=== PATIENT | female | born 1940 | race Caucasian/White ===

== ENCOUNTER 2017-01-08 10:48 | Emergency (ER) | payer MEDICARE, BC ==
[~2017-01-08] VITALS: Ht 152.4 cm; Wt 78.9 kg
--- NOTE | 2017-01-08 11:10 | NUR ---
PT B[facility] AT 0300AM. R LEG NUMBNESS. HEADACHE. DIZZINESS. SENT BY HER PCP DR. CARBAJAL. DENIES KO. DENIES PAIN/TRAUMA ELSEWHERE. PT AAOX3. VSEmeka. AT FOR EVAL. SAFETY AND COMFORT MEASURES PROVIDED. WILL MONITOR.
--- NOTE | 2017-01-08 11:40 | NUR ---
IV ACCESS STARTED, BLOOD DRAWN FOR LABS.
[2017-01-08] MEDS ORDERED: IV NS 0.9% 500 ML IV ONE (12:00)
[2017-01-08] MEDS ORDERED: IV SET PRIMARY 1 EA INFUS.SET MC ONE (12:00)
[2017-01-08 12:04] LABS: BASOPHILS # (AUTO) 0.1 /CMM (0.0-0.2); BASOPHILS % (AUTO) 0.5 % (0.0-2.0); EOSINOPHILS # (AUTO) 0.2 /CMM (0.0-0.7); EOSINOPHILS % (AUTO) 2.3 % (0.0-6.0); HEMATOCRIT 42 % (33-45); HEMOGLOBIN 13.9 g/dL (11.5-14.8); LYMPHOCYTES # (AUTO) 1.6 /CMM (0.8-4.8); LYMPHOCYTES % (AUTO) 15.6 % (20.0-44.0); MEAN CORPUSCULAR HEMOGLOBIN 29 PG (26.0-33.0); MEAN CORPUSCULAR HGB CONC 33 g/dl (31.0-36.0); MEAN CORPUSCULAR VOLUME 90 fL (82-100); MONOCYTES # (AUTO) 0.6 /CMM (0.1-1.30); MONOCYTES % (AUTO) 6.1 % (2.0-12.0); NEUTROPHILS # (AUTO) 7.8 /CMM (1.8-8.9); NEUTROPHILS % (AUTO) 75.5 % (43.0-81.0); PLATELET COUNT (AUTO) 223 /CMM (150-450); RDW COEFFICIENT OF VARIATION 13.3 (11.5-15.0); RED BLOOD CELL COUNT(AUTO) 4.72 MIL/uL (4.0-5.2); WHITE BLOOD COUNT (AUTO) 10.3 K/uL (4.3-11.0)
[2017-01-08] MEDS: IV NS 0.9% 500 ML BAG IV ONE (12:05)
[2017-01-08 12:13] LABS: CALCIUM, SERUM 9.2 mg/dL (8.5-10.1); CARBON DIOXIDE 32 mmol/L (21-32); CHLORIDE 105 mmol/L (98-107); CREATININE 0.8 mg/dL (0.6-1.3); GLUCOSE 102 mg/dL (74-106); POTASSIUM 4.2 mmol/L (3.5-5.1); SODIUM SERUM 141 mmol/L (136-145); UREA NITROGEN, BLOOD 15 mg/dL (7-18)
--- NOTE | 2017-01-08 12:16 | NUR ---
PT TAKEN TO CT.
[2017-01-08 12:18] LABS: INR 0.93 (0.87-1.13); PROTHROMBIN TIME 9.7 SECS (9.5-12.7)
[2017-01-08 12:22] LABS: TROPONIN I < 0.017 ng/mL (0.00-0.056)
--- NOTE | 2017-01-08 12:58 | NUR ---
CALLED AT [phone], TRANSFERRED CALL TO
--- NOTE | 2017-01-08 13:12 | NUR ---
Patient discharged to home in stable condition. Written and verbal after care instructions given. Patient verbalizes understanding of instruction.IV removed. Catheter intact and site benign. Pressure and 4x4 applied to site. No bleeding noted.
[2017-01-08 13:40] VITALS: BP 113/71
== END 2017-01-08 13:40 | disposition home or self-care (01) ==
LOC: ER 10:51
DX: S09.90XA Unspecified injury of head, initial encounter (principal); I10 Essential (primary) hypertension; R51 Headache; L40.9 Psoriasis, unspecified; R79.1 Abnormal coagulation profile; Z88.5 Allergy status to narcotic agent; W18.39XA Other fall on same level, initial encounter; Y93.89 Activity, other specified; Y92.89 Other specified places as the place of occurrence of the external cause; Y99.9 Unspecified external cause status
CPT/HCPCS: 36415; 70450-TC; 71010-TC; 80048-TC; 84484-TC; 85025-TC; 85730-TC; A4606; J7040; Z7610

== ENCOUNTER 2018-06-05 15:14 | Emergency (ER) | payer MEDICARE, BC ==
[~2018-06-05] VITALS: Ht 152.4 cm; Wt 77.1 kg
--- NOTE | 2018-06-05 15:30 | NUR ---
PT BIB SELF FROM HOME, WHO CQAME IN DUE TO LOWER EXTRIMITIES RASH AND ITCHING FROM THE INSECT BITES. ON ROOM AIR AND TOLERATED WELL. ALERT AND ORIENTED X 4, VERBALLY RESPONSIVE. KEPT COMFORTABLE. WILL CONTINUE TO MONITOR ACCORDINGLY.
--- NOTE | 2018-06-05 15:57 | NUR ---
DR. COLEMAN AT BEDSIDE FOR EVAL.
[2018-06-05 16:25] VITALS: BP 110/61
== END 2018-06-05 16:26 | disposition home or self-care (01) ==
LOC: ER 15:21
DX: S40.861A Insect bite (nonvenomous) of right upper arm, initial encounter (principal); S80.261A Insect bite (nonvenomous), right knee, initial encounter; I10 Essential (primary) hypertension; L40.9 Psoriasis, unspecified; Z88.5 Allergy status to narcotic agent; W57.XXXA Bitten or stung by nonvenomous insect and other nonvenomous arthropods, initial encounter; Y93.89 Activity, other specified; Y92.89 Other specified places as the place of occurrence of the external cause; Y99.8 Other external cause status
CPT/HCPCS: A4606; Z7610

== ENCOUNTER 2019-03-02 21:58 | Inpatient (IN) | payer MEDICARE, BC ==
[~2019-03-02] VITALS: Ht 154.9 cm; Wt 84.4 kg
--- NOTE | 2019-03-02 22:15 | NUR ---
TO BED 1 AMBULATORY C/O RLE REDNESS, PAIN AND SWELLING X1 DAY. PT AAOX4 NO ACUTE DISTRESS NOTED, RESP EVEN AND UNLABORED. PENDING ER MD HARDIN.
[2019-03-02] MEDS ORDERED: CLINDAMYCIN 900 MG/6 ML VIAL ONE (23:20)
[2019-03-02 23:22] LABS: BASOPHILS # (AUTO) 0.1 /CMM (0.0-0.2); BASOPHILS % (AUTO) 0.7 % (0.0-2.0); EOSINOPHILS % (AUTO) 3.1 % (0.0-6.0); HEMATOCRIT 40 % (33-45); HEMOGLOBIN 13.5 g/dL (11.5-14.8); LYMPHOCYTES # (AUTO) 2.2 /CMM (0.8-4.8); LYMPHOCYTES % (AUTO) 18.1 % (20.0-44.0); MEAN CORPUSCULAR HGB CONC 34 g/dl (31.0-36.0); MEAN CORPUSCULAR VOLUME 89 fL (82-100); MONOCYTES # (AUTO) 0.7 /CMM (0.1-1.30); NEUTROPHILS # (AUTO) 8.8 /CMM (1.8-8.9); NEUTROPHILS % (AUTO) 72.1 % (43.0-81.0); PLATELET COUNT (AUTO) 200 /CMM (150-450); RED BLOOD CELL COUNT(AUTO) 4.47 MIL/uL (4.0-5.2); WHITE BLOOD COUNT (AUTO) 12.1 K/uL (4.3-11.0)
[2019-03-02] MEDS ORDERED: CLINDAMYCIN 600 MG in IV D5W 100 ML IV ONE (23:30)
[2019-03-02 23:31] LABS: CALCIUM, SERUM 9.1 mg/dL (8.5-10.1); CARBON DIOXIDE 24 mmol/L (21-32); CHLORIDE 104 mmol/L (98-107); GLUCOSE 94 mg/dL (74-106); SODIUM SERUM 139 mmol/L (136-145); UREA NITROGEN, BLOOD 24 mg/dL (7-18)
--- NOTE | 2019-03-03 00:16 | NUR ---
ER MICHELLE RDZ TALKING TO PT REGARDING HOSPITAL ADMISSION.
--- NOTE | 2019-03-03 00:46 | NUR ---
ER MICHELLE RDZ SPOKE TO DR. WYATT REGARDING PT ADMISSION.
[2019-03-03] MEDS ORDERED: ACETAMINOPHEN ES 500 MG TABLET PO ONE (01:00)
--- NOTE | 2019-03-03 01:06 | NUR ---
REPORT CALLED TO M/S DANGELO DUGGAN.
[2019-03-03] MEDS ORDERED: ACETAMINOPHEN ES 500 MG TABLET ONE (01:07)
--- NOTE | 2019-03-03 01:27 | NUR ---
MS TRANSIT MIXER OPERATOR NOTE: PT ADMITTED FROM ER VIA WHEELCHAIR WITH ADMITTING DIAGNOSIS OF CELLULITIS. PT IS ALERT AND ORIENTED X3. ABLE TO MAKE NEEDS KNOWN. NO APPARENT DISTRESS NOTED. DENIES PAIN AND DISCOMFORT AT THIS TIME. ON ROOM AIR, SATURATING WELL. NO SOB NOTED. PT HAS AN IV ON RIGHT FOREARM #18 INTACT AND PATENT, FLUSHING WELL. NO SIGN/SYMPTOMS OF INFILTRATION NOTED. PT IS AMBULATORY WITH WALKER. PERTINENT ASSESSMENTS DONE, MULTIPLE SKIN ISSUES NOTED, PICTURES TAKEN AND PLACED ON CHART. KEPT CLEAN, DRY AND COMFORTABLE. CALL LIGHT PLACED WITHIN REACH. SAFETY AND FALL PRECAUTIONS OBSERVED AND MAINTAINED. WILL CONTINUE TO MONITOR PT.
[2019-03-03] MEDS ORDERED: HYDROCODONE/APAP 5/325MG 1 EACH TABLET PO PRN (02:00)
[2019-03-03] MEDS ORDERED: ACETAMINOPHEN 325 MG TABLET PO PRN (02:00)
[2019-03-03] MEDS ORDERED: PIPERACILLIN /TAZOBACTAM 3.375 G VIAL IV ONE (02:10)
[2019-03-03] MEDS: ENOXAPARIN SODIUM 40 MG/0.4 ML DISP.SYRIN SQ SCH ×2 (02:13→21:03)
[2019-03-03] MEDS ORDERED: PIPERACILLIN /TAZOBACTAM 3.375 G in IV D5W 50 ML IV ONE (02:30)
[2019-03-03] MEDS ORDERED: VANCOMYCIN 1.25 GM in IV D5W 250 ML IV ONE (02:30)
[2019-03-03 02:35] VITALS: BP 162/81
[2019-03-03] MEDS ORDERED: VANCOMYCIN 1 GM VIAL ONE (02:50)
[2019-03-03 04:00] VITALS: BP 113/58
[2019-03-03] MEDS ORDERED: PIPERACILLIN /TAZOBACTAM 3.375 G in IV D5W 50 ML IV SCH (05:00)
--- NOTE | 2019-03-03 06:41 | NUR ---
MS RN NOTE: NO CHANGES NOTED THROUGHOUT THE SHIFT. NO APPARENT DISTRESS NOTED. NO COMPLAINTS OF PAIN OR DISCOMFORT AT THIS TIME. IV ON RIGHT FOREARM #18 INTACT AND PATENT, FLUSHING WELL. PT ABLE TO AMBULATE TO THE BATHROOM WITH WALKER. CALL LIGHT PLACED WITHIN REACH. KEPT CLEAN, DRY AND COMFORTABLE. SAFETY AND FALL PRECAUTIONS OBSERVED AND MAINTAINED. WILL ENDORSE TO DAY SHIFT RN FOR CONTINUITY OF CARE.
[2019-03-03] MEDS: PANTOPRAZOLE 40 MG TABLET.DR PO SCH (07:42)
[2019-03-03 08:00] VITALS: BP 149/65
--- NOTE | 2019-03-03 08:32 | NUR ---
WOUND CARE CONSULT: PT PRESENTS INDEPENDENT WITH BED MOBILITY AND CONTINENT. PT STATES HAS PSORIASIS AND USES TRIAMCINOLONE AT HOME. RT LOWER LEG IS WARM, RED WITH INTACT BLISTER AND BILATERAL FEET HAVE PSORIATIC PATCHES, PRESENT ON ADMISSION. RECOMMEND DPM CONSULT. DR LINDA NOTIFIED OF CONSULT REQUEST. PT ON IMELDA ISOFLEX LOW AIRLOSS BED. WILL SEE PRN. THOMAS IN AGREEMENT WITH PLAN OF CARE. Addendum: 03/03/19 at 0836 by ZARA DUONG WNDNU Amended: Links added.
[2019-03-03] MEDS ORDERED: Z GUARD REMEDY 2 OZ OINT TP PRN (09:00)
[2019-03-03] MEDS ORDERED: FEE PK DOSING 1 MIN EA MC ONE (09:49)
[2019-03-03] MEDS ORDERED: OMEP40CA37 PO (10:19)
[2019-03-03] MEDS ORDERED: APIX2.5T PO (10:19)
[2019-03-03] MEDS ORDERED: HYDR10SY16 PO (10:19)
[2019-03-03] MEDS ORDERED: POTA15TA11 PO (10:19)
[2019-03-03] MEDS ORDERED: FEBU80TA PO (10:19)
[2019-03-03] MEDS ORDERED: SERT50TA12 PO (10:19)
[2019-03-03] MEDS ORDERED: OLME1TAB50 PO (10:19)
[2019-03-03] MEDS ORDERED: APRE30TA2 PO (10:19)
[2019-03-03] MEDS ORDERED: ROSU5TAB13 PO (10:19)
[2019-03-03] MEDS ORDERED: COLC0.6C3 PO (10:19)
[2019-03-03] MEDS: PIPERACILLIN /TAZOBACTAM 3.375 G in IV D5W 100 ML IV SCH ×2 (11:53→17:49)
[2019-03-03] MEDS ORDERED: hydrOXYzine HCL SYRUP 10 MG/5 ML UDC PO PRN (15:00)
[2019-03-03] MEDS ORDERED: COLCHICINE 0.6 MG TABLET PO PRN (15:00)
[2019-03-03] MEDS ORDERED: hydrOXYzine 10 MG TABLET PO PRN (16:00)
[2019-03-03] MEDS ORDERED: OTEZLA 30 MG PO SCH (17:00)
--- NOTE | 2019-03-03 17:25 | NUR ---
Met with patient, she is alert and pleasant. Lives locally with her spouse in a two story home. 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 She has a caregiver 5days/week and has good family support. She own a walker, no homehealth reported. Pcp is Dr. Oliver. Family will provide ride when discharge. Addendum: 03/03/19 at 1725 by VICKIE ANDERSON RN Amended: Links added.
[2019-03-03] MEDS: APIXABAN 2.5 MG TABLET PO SCH (17:33)
--- NOTE | 2019-03-03 19:20 | NUR ---
RN NOTES: RECEIVED AWAKE SITTING ON THE BED SIDE CHAIR, A/OX3-4, FAMILY PRESENT AT BED SIDE, AMBULATORY WITH WALKER, WITH MULTIPLE SKIN ISSUES, BLE ELEVATED AT ALL TIMES WHILE IN BED, LFA G#22, ON RA, PER ENDORSEMENT WILL MONITOR SPO2 AND RECORD THE LOWEST READING ON THE PATIENT CHART PER CLINICAL RESEARCH ASSISTANT ORDER,ORIENTED TO UNIT AND STAFF, FALL,SAFETY AND ASPIRATION PRECAUTION OBSERVED, BED LOW AND LOCKED, CALL LIGHT WITHIN EASY REACH, KEPT ON CLOSE WATCH. ASSISTED TO THE BATHROOM.STILL WITH ITCHINESS PER MARÍA ENDORSEMENT PRN FOR ITCHINESS GIVEN. WILL CONTINUE TO MONITOR AND PROVIDE COMFORT MEASURES.
[2019-03-03] MEDS: VANCOMYCIN 1 GM in IV D5W 250 ML IV SCH (20:52)
[2019-03-03] MEDS: CEFTRIAXONE 1 G in IV D5W 50 ML IV SCH (20:52)
--- NOTE | 2019-03-03 22:45 | NUR ---
RN NOTES: AWAKE IN BETWEEN ASSISTED TO BATHROOM ABLE TO AMBULATE WITH ASSISTANCE, SUDHIR AND NEEDS ATTENDED. CALL LIGHT KEPT WITHIN EASY REACH. -SPO2 MONITORED Q HOURLY.
[2019-03-04] VITALS: BP 109/50
[2019-03-04 06:39] LABS: BASOPHILS % (AUTO) 0.3 % (0.0-2.0); EOSINOPHILS % (AUTO) 3.1 % (0.0-6.0); HEMATOCRIT 36 % (33-45); HEMOGLOBIN 12.5 g/dL (11.5-14.8); LYMPHOCYTES # (AUTO) 1.7 /CMM (0.8-4.8); LYMPHOCYTES % (AUTO) 16.8 % (20.0-44.0); MEAN CORPUSCULAR HGB CONC 34 g/dl (31.0-36.0); MEAN CORPUSCULAR VOLUME 89 fL (82-100); MONOCYTES # (AUTO) 0.7 /CMM (0.1-1.30); MONOCYTES % (AUTO) 6.3 % (2.0-12.0); NEUTROPHILS # (AUTO) 7.6 /CMM (1.8-8.9); NEUTROPHILS % (AUTO) 73.5 % (43.0-81.0); PLATELET COUNT (AUTO) 183 /CMM (150-450); WHITE BLOOD COUNT (AUTO) 10.3 K/uL (4.3-11.0)
--- NOTE | 2019-03-04 06:49 | NUR ---
RN NOTES: V/S REMAINS WITHIN RANGE, NO PAIN OR DISCOMFORT, KEEP COMFORTABLE IN BED, ASLEEP MOST OF THE TIME.SPO2-94% RA,CALL LIGHT WITHIN EASY REACH, ENDORSED FOR CONTINUITY OF CARE.
[2019-03-04 06:57] LABS: CHOLESTEROL 199 mg/dL (<200); HDL CHOLESTEROL 36 mg/dL (40-60); LDL 131 mg/dL (0-99); TRIGLYCERIDES 191 mg/dL (30-150)
[2019-03-04 07:06] LABS: ALANINE AMINOTRANSFERASE 19 U/L (12-78); ALBUMIN 3.2 g/dL (3.4-5.0); ALKALINE PHOSPHATASE 65 U/L (46-116); ASPARTATE AMINOTRANSFERASE 14 U/L (15-37); BILIRUBIN,TOTAL 0.8 mg/dL (0.2-1.0); CALCIUM, SERUM 8.8 mg/dL (8.5-10.1); CARBON DIOXIDE 25 mmol/L (21-32); CHLORIDE 105 mmol/L (98-107); GLUCOSE 98 mg/dL (74-106); MAGNESIUM 2.2 mg/dL (1.8-2.4); PHOSPHORUS 3.9 mg/dL (2.5-4.9); POTASSIUM 3.8 mmol/L (3.5-5.1); SODIUM SERUM 141 mmol/L (136-145); TOTAL PROTEIN, SERUM 6.7 g/dL (6.4-8.2); UREA NITROGEN, BLOOD 12 mg/dL (7-18)
--- NOTE | 2019-03-04 07:30 | NUR ---
INITIAL RECEIVED AWAKE SITTING ON THE BED SIDE CHAIR, A/OX3-4, AMBULATORY WITH WALKER, WITH MULTIPLE SKIN ISSUES, BLE ELEVATED AT ALL TIMES WHILE IN BED, LFA G#22, ON RA, SAO2 READING DONE RESULTS ON CHART ,ORIENTED TO UNIT AND STAFF, FALL,SAFETY AND ASPIRATION PRECAUTION OBSERVED, BED LOW AND LOCKED, CALL LIGHT WITHIN EASY REACH, KEPT ON CLOSE WATCH. ASSISTED TO THE BATHROOM.STILL WITH ITCHINESS PER MARÍA ENDORSEMENT PRN FOR ITCHINESS GIVEN. WILL CONTINUE TO MONITOR AND PROVIDE COMFORT MEASURES.
[2019-03-04 08:00] VITALS: BP 120/58
[2019-03-04] MEDS: ATORVASTATIN 10 MG TABLET PO SCH (08:18)
[2019-03-04] MEDS: PANTOPRAZOLE 40 MG TABLET.DR PO SCH (08:18)
[2019-03-04] MEDS: SERTRALINE HCL 50 MG TABLET PO SCH (08:18)
[2019-03-04] MEDS: APIXABAN 2.5 MG TABLET PO SCH ×2 (08:20→16:33)
[2019-03-04] MEDS: POTASSIUM CITRATE 5 MEQ TABLET.SA PO SCH (08:20)
[2019-03-04] MEDS ORDERED: ULORIC 80 MG PO SCH (09:00)
[2019-03-04] MEDS: BENICAR HCT PO SCH (12:00)
--- NOTE | 2019-03-04 12:45 | NUR ---
PT C/O BEING DIZZY WENT TO BEDSIDE FOUND PT RESTING ON BED NOTED TO BE ANXIOUS AND RIGHT FOOT IN PAIN GIVEN PAIN MEDICATION AND USED ALTERNATIVE RELAXATION METHODS WELL SPOUSE AT BEDSIDE. WILL CONTINUE TO MONITOR
--- NOTE | 2019-03-04 12:50 | NUR ---
TEXTED RYAN GUTHRIE NOTIFYING OF 0615 H/H OF 8.4/26 H/H ORDERED Q4 NEXT DRAW 1300
[2019-03-04] MEDS: ONDANSETRON HCL/PF 4 MG/2 ML VIAL IVP PRN ×2 (14:02→18:02)
[2019-03-04 16:00] VITALS: BP_SYST 128; BP_DIAS 65; BP_DIAS 68
[2019-03-04] MEDS: VANCOMYCIN 1 GM in IV D5W 250 ML IV SCH (16:06)
--- NOTE | 2019-03-04 18:47 | NUR ---
closing telephoned MD Clayton and in speaking with him informed PT need to sleep at night. Received order for medication. pt remain safe all needs attended to up with PT evaluation and to bath room with walker assist. Right leg elevated will given RN report to PM shift for continuity of care.
--- NOTE | 2019-03-04 19:30 | NUR ---
MS-1/FRUIT II FARMWORKER PT FOUND WITH PRESCRIPTION BOTTLE OF LORAZEPAM 2MG TABLETS AT BEDSIDE. I REMOVED THE BOTTLE FROM HER POSSESSION AND EDUCATED HER ON THE SERIOUS RISKS OF SELF MEDICATION WHILE IN THE HOSPITAL. PT STATES THAT SHE DID NOT TAKE ANY OF THE MEDICATION. I INVENTORIED THE BOTTLE AND WILL SEND IT TO PHARMACY. EXPLAINED TO PT THAT SHE CAN RETRIEVE IT WHEN SHE IS DISCHARGED. PT UNDERSTANDS. WILL CONTINUE TO MONITOR CLOSELY.
[2019-03-04 20:00] VITALS: BP 156/62
[2019-03-04] MEDS: ENOXAPARIN SODIUM 40 MG/0.4 ML DISP.SYRIN SQ SCH (20:55)
[2019-03-04] MEDS: CEFTRIAXONE 1 G in IV D5W 50 ML IV SCH (20:56)
[2019-03-04] MEDS: TEMAZEPAM 7.5 MG CAPSULE PO PRN (21:24)
[2019-03-05 08:00] VITALS: BP 128/64
[2019-03-05 08:24] LABS: CALCIUM, SERUM 9.1 mg/dL (8.5-10.1); CARBON DIOXIDE 28 mmol/L (21-32); CHLORIDE 102 mmol/L (98-107); CREATININE 1.1 mg/dL (0.6-1.3); GLUCOSE 114 mg/dL (74-106); POTASSIUM 4.2 mmol/L (3.5-5.1); SODIUM SERUM 139 mmol/L (136-145); UREA NITROGEN, BLOOD 10 mg/dL (7-18)
[2019-03-05] MEDS: PANTOPRAZOLE 40 MG TABLET.DR PO SCH (08:36)
--- NOTE | 2019-03-05 09:00 | NUR ---
patient recieved with iv acsess painful and tender. tried to reinsert g 22 to the right forerarm but fasiled /charge nurse informed will reinsert one.
[2019-03-05] MEDS: SERTRALINE HCL 50 MG TABLET PO SCH (09:49)
[2019-03-05] MEDS: ATORVASTATIN 10 MG TABLET PO SCH (09:49)
[2019-03-05] MEDS: VANCOMYCIN 1 GM in IV D5W 250 ML IV SCH (09:51)
[2019-03-05] MEDS: BENICAR HCT PO SCH (09:51)
[2019-03-05] MEDS: APIXABAN 2.5 MG TABLET PO SCH ×2 (09:51→17:34)
--- NOTE | 2019-03-05 11:25 | NUR ---
vancomycin dose ongoing after the reinsertion of iv cannula to the right forearm g24, patient in the chair sitting tolerating well with at bedside
[2019-03-05] MEDS: POTASSIUM CITRATE 5 MEQ TABLET.SA PO SCH (12:07)
[2019-03-05 16:00] VITALS: BP_SYST 109; BP_SYST 119; BP_DIAS 66; BP_DIAS 72
--- NOTE | 2019-03-05 16:51 | NUR ---
DR IZAGUIRRE PAGED THE PATIENT SATURATION IS UNSTABLE AND GOES DOWN TO 88% ON ROOM AIR WILL GO UP 95 % BUT WILL GO BACK TO 88%. PATIENT IV LINE WAS INSERTED THIS MORNING AND HAD TRIED 4 X BEFORE A GAUGE 24 WAS INSERTED. AND PATIENT IS COMPLAINING IT IS GETTING TO BE PAINFULL AGAIN. WILL ASK DR IZAGUIRRE IF MIDLINE CAN BE INSERTED, WOUND CULTURE NOT DONE WHEN ORDERED, WILL NEED TO GET ONE SAMPLE. MESSAGE LEFT WITH THE EXCHANGE. AWAITING RESPONSE
[2019-03-05] MEDS: LACTOBACILLUS RHAMNOSUS GG 1 EACH CAP.SPRINK PO SCH (17:34)
--- NOTE | 2019-03-05 18:21 | NUR ---
DR IZAGUIRRE INFORMED ABOUT THE PATIENT LOW SATURATION AND THAT THE PATIENT PSORIASIS SORES ON THE SOLE OF THE FEET MIGHT NEED TREATMENT, PATIENT IS TAKING OTESLA AT HOME FOR PSORIASIS AND ORDEERED TO CONTINUE HER OWN PATIENT MEDICATION OTESLA
--- NOTE | 2019-03-05 18:55 | NUR ---
patient claims that she had 2 bm but the last one is blackish brown in color. will continue to minotor
--- NOTE | 2019-03-05 19:40 | NUR ---
RN INITIAL NOTES: RECEIVED REPORT FROM JOHNNY PIERSON. PT SITTING ON A CHAIR. A/O X4, ON RA RESPIRATIONS EVEN AND UNLABORED. IV ACCESS PATENT AND FLUSHING WELL, ON HL. PT DENIES ANY PAIN OR DISCOMFORT AT THIS TIME. PT INDEPENDENT WITH ADLS, HAD BM AND COLOR IS GREENISH. PER REPORT IT WAS DARK, BLACK EARLEIR. INFORMED PT EVERY SHE NEEDS TO USE BATHROOM FOR BM TRO INFORM RN BEFORE FLUSHING SO WE CAN MONITOR/OBSERVE STOOL. PT AGREE AND UNDERSTAND. SAFETY PRECAUTIONS FOR FALL INITIATED, CALL LIGHT IN REACH, WILL CONTINUE MONITORING PT.
[2019-03-05 20:00] VITALS: BP 130/65
[2019-03-05] MEDS: ENOXAPARIN SODIUM 40 MG/0.4 ML DISP.SYRIN SQ SCH (21:11)
[2019-03-05] MEDS: CEFTRIAXONE 1 G in IV D5W 50 ML IV SCH (21:11)
[2019-03-05] MEDS: TEMAZEPAM 7.5 MG CAPSULE PO PRN (21:12)
--- NOTE | 2019-03-05 21:12 | NUR ---
PRN SLEEPING PILL: PT REQUESTED FOR SLEEPING PILL, PRN RESTORIL 7.5 MG CAP ADMINISTERED AT THIS TIME, WILL CONTINUE TO MONITOR AND REASSESS PT
--- NOTE | 2019-03-05 23:47 | NUR ---
rn notes: pt transferred to room 111 as she's complaining of difficulty sleeping due oksana loud noise of the television of the next room. all belongings sent with pt upon transfer.
--- NOTE | 2019-03-06 02:08 | NUR ---
rn notes: seen pt sleeping soundly
[2019-03-06] MEDS: VANCOMYCIN 1 GM in IV D5W 250 ML IV SCH (03:01)
[2019-03-06 04:00] VITALS: BP 115/60
--- NOTE | 2019-03-06 06:38 | NUR ---
RN CLOSING NOTES: PT REMAINS ON RA, DENIES ANY PAIN OR DISCOMFORT AT THIS TIME. IV ACCESS REMAINS PATENT AND FLUSHING WELL, ON HL. DRESSING ON RLE REMAINS C/D/I. NO ACTIVE BLEEDING NOTED. FOR DC PLANNING IN AM. VS REMAINS STABLE, NEEDS ATTENDED. . SAFETY PRECAUTIONS FOR FALL REMAINS ENGAGED, CALL LIGHT IN REACH, WILL ENDORSE TO DAY RN FOR CONTINUITY OF CARE.
--- NOTE | 2019-03-06 07:10 | NUR ---
RN INITIAL NOTES PATIENT SITTING ON CHAIR. WAS COMPLAINING OF GENERALIZED PAIN DUE TO NOT HAVING ENOUGH SLEEP LAST NIGHT. REFUSED ANY PAIN MEDS. ALERT AND ORIENTED X4. HAS A RLE NON PITTING EDEMA. AMBULATORY WITH ASSIST. PSORIASIS ON LEFT ELBOW AND PLANTAR OF FEET. HAS A RIGHT FA #24 SALINE LOCKED. DC PLANNING FOR TODAY, PATIENT IS AWARE. PER PATIENT, IF SHE WILL NOT GO HOME SHE WANTS TO BE TRANSFERRED TO ANOTHER ROOM. BED IS IN LOWEST POSITION. CALL LIGHT WITHIN REACH. WILL CONT TO MONITOR
[2019-03-06 07:35] LABS: CARBON DIOXIDE 28 mmol/L (21-32); CHLORIDE 102 mmol/L (98-107); CREATININE 1.2 mg/dL (0.6-1.3); GLUCOSE 98 mg/dL (74-106); POTASSIUM 4.4 mmol/L (3.5-5.1); SODIUM SERUM 139 mmol/L (136-145); UREA NITROGEN, BLOOD 16 mg/dL (7-18)
[2019-03-06 08:00] VITALS: BP 137/62
[2019-03-06] MEDS: SERTRALINE HCL 50 MG TABLET PO SCH (08:10)
[2019-03-06] MEDS: ATORVASTATIN 10 MG TABLET PO SCH (08:10)
[2019-03-06] MEDS: PANTOPRAZOLE 40 MG TABLET.DR PO SCH (08:11)
[2019-03-06] MEDS: POTASSIUM CITRATE 5 MEQ TABLET.SA PO SCH (08:11)
[2019-03-06] MEDS: LACTOBACILLUS RHAMNOSUS GG 1 EACH CAP.SPRINK PO SCH (08:11)
[2019-03-06] MEDS: BENICAR HCT PO SCH (08:11)
[2019-03-06] MEDS: APIXABAN 2.5 MG TABLET PO SCH (08:13)
[2019-03-06] MEDS: ONDANSETRON HCL/PF 4 MG/2 ML VIAL IVP PRN (08:19)
--- NOTE | 2019-03-06 11:00 | NUR ---
RN NOTES DR IZAGUIRRE AT BEDSIDE, PATIENT AWARE THAT SHE IS GETTING DC TODAY. PER PATIENT, WILL PICK HER UP AND IF OK SHE WANTS TO LEAVE AFTER LUNCH
--- NOTE | 2019-03-06 13:05 | NUR ---
GRAIN HANDLER NOTES PATIENT WHEELED OUT BY OUR HAIR ASSISTANT. IN STABLE CONDITION. NO COMPLAINS OF ANY PAIN NOR SOB. WITH PATIENT. IV SITE REMOVED. DISCHARGE INSTRUCTIONS GIVEN TO PATIENT AND . PRESCRIPTION GIVEN WELL. BELONGINGS LIST SIGNED. PT HAS EVERYTHING WITH HER.
== END 2019-03-06 13:05 | disposition home or self-care (01) | DRG 603 ==
LOC: ER 22:01 → MEDSG1 03-03 01:06
PROVIDERS: ADMIT Nurse Practitioner Acute Care; ATTEND Internal Medicine
DX: L03.115 Cellulitis of right lower limb (principal); I69.351 Hemiplegia and hemiparesis following cerebral infarction affecting right dominant side; I10 Essential (primary) hypertension; E78.5 Hyperlipidemia, unspecified; I73.9 Peripheral vascular disease, unspecified; E66.01 Morbid (severe) obesity due to excess calories; Z68.35 Body mass index [BMI] 35.0-35.9, adult; L40.9 Psoriasis, unspecified; M10.9 Gout, unspecified; Z87.891 Personal history of nicotine dependence; Z82.49 Family history of ischemic heart disease and other diseases of the circulatory system; K21.9 Gastro-esophageal reflux disease without esophagitis; Z88.5 Allergy status to narcotic agent; Z79.899 Other long term (current) drug therapy; Z87.09 Personal history of other diseases of the respiratory system; I70.8 Atherosclerosis of other arteries
CPT/HCPCS: 36415; 71045-TC; 73610-TC; 73630-TC; 73718-TC; 80048-TC; 80053-TC; 80061-TC; 80202-TC; 83605-TC; 83735-TC; 84100-TC; 85025-TC; 85652-TC; 86140-TC; 87081-TC; 93971-TC; 97116-TC; 97530-TC; A6253; A6403; G0378; J0696; J1650; J2405; J2543; J3370; J3490; J7030; J7050; J7060; Q0177

== ENCOUNTER 2019-10-21 09:33 | Emergency (ER) | payer MEDICARE, BC ==
[~2019-10-21] VITALS: Ht 157.5 cm; Wt 86.2 kg
[~2019-10-21 09:33] MED LIST: APIX2.5T PO; APRE30TA2 PO; COLC0.6C3 PO; FEBU80TA PO; HYDR10SY16 PO; OLME1TAB82 PO; OMEP40CA13 PO; POTA15TA11 PO; ROSU5TAB13 PO; SERT50TA12 PO
--- NOTE | 2019-10-21 09:54 | NUR ---
PT RC'D TO ER C//O ABD PAIN N/V FOR 1 DAY AND HIGH BP THIS MORNING TOOK HER MEDS AWAITING EVALUATION BY ER PROVIDER.PT IV S TARTED 18G LEFT AC LABS DRAWNS SENT TO LAB UA PENDING PT VOIDED PRIOR TO VISIT . MEDS GIVEN PER MD ORDER
--- NOTE | 2019-10-21 09:57 | NUR ---
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 HX KIDNEY STONES
[2019-10-21] MEDS ORDERED: CLOP75TA15 PO (09:58)
[2019-10-21] MEDS ORDERED: VENL37.591 PO (09:58)
[2019-10-21] MEDS ORDERED: OLME5TAB6 PO (09:58)
[2019-10-21] MEDS ORDERED: CETI-108 PO (09:58)
[2019-10-21] MEDS ORDERED: TRAZ-182 PO (09:58)
[2019-10-21] MEDS ORDERED: ACETAMINOPHEN 325 MG TABLET ONE (09:59)
[2019-10-21] MEDS ORDERED: ONDANSETRON HCL/PF 4 MG/2 ML VIAL ONE (09:59)
[2019-10-21] MEDS ORDERED: ONDANSETRON HCL/PF 4 MG/2 ML VIAL IVP ONE (10:00)
[2019-10-21] MEDS ORDERED: ACETAMINOPHEN 650 MG/20.3 ML UDC PO ONE (10:00)
[2019-10-21 10:03] LABS: BASOPHILS % (AUTO) 0.3 % (0.0-2.0); EOSINOPHILS % (AUTO) 0.2 % (0.0-6.0); HEMATOCRIT 42 % (33-45); HEMOGLOBIN 13.8 g/dL (11.5-14.8); LYMPHOCYTES # (AUTO) 0.9 /CMM (0.8-4.8); LYMPHOCYTES % (AUTO) 6.9 % (20.0-44.0); MEAN CORPUSCULAR HGB CONC 33 g/dl (31.0-36.0); MEAN CORPUSCULAR VOLUME 90 fL (82-100); MONOCYTES # (AUTO) 0.7 /CMM (0.1-1.30); MONOCYTES % (AUTO) 5.2 % (2.0-12.0); NEUTROPHILS # (AUTO) 11.1 /CMM (1.8-8.9); NEUTROPHILS % (AUTO) 87.4 % (43.0-81.0); PLATELET COUNT (AUTO) 197 /CMM (150-450); RED BLOOD CELL COUNT(AUTO) 4.62 MIL/uL (4.0-5.2); WHITE BLOOD COUNT (AUTO) 12.8 K/uL (4.3-11.0)
--- NOTE | 2019-10-21 10:06 | NUR ---
PT TO RADIOLOGY FOR ABDOMINAL CT SCAN VIA [facility].
[2019-10-21 10:16] LABS: ALBUMIN 3.8 g/dL (3.4-5.0); BILIRUBIN,DIRECT 0.2 mg/dL (0.0-0.2); BILIRUBIN,TOTAL 0.9 mg/dL (0.2-1.0); CALCIUM, SERUM 9.3 mg/dL (8.5-10.1); CREATININE 1.2 mg/dL (0.6-1.3); POTASSIUM 3.9 mmol/L (3.5-5.1); TOTAL PROTEIN, SERUM 7.8 g/dL (6.4-8.2)
--- NOTE | 2019-10-21 10:36 | NUR ---
URINE SAMPLE SENT TO LAB
[2019-10-21 10:41] LABS: APPEARANCE,URINE Clear (CLEAR); BILIRUBIN,URINE Negative (NEGATIVE); BLOOD, URINE Moderate Ery/uL (NEGATIVE); COLOR,URINE Yellow (YELLOW); KETONES,URINE Negative (NEGATIVE); LEUKOCYTE ESTERASE ,URINE Negative (NEGATIVE); NITRITE, URINE Negative (NEGATIVE); PH,URINE 5.5 (5.0-8.0); PROTEIN,URINE 30 mg/dl (NEGATIVE); UGLUCOSE Negative (NEGATIVE); UROBILINOGEN,URINE 0.2 EU/dL (0.2)
[2019-10-21 10:53] LABS: BACTERIA,URINE Few /HPF (None Seen); SQUAMOUS EPITHELIAL CELL,UR Few /HPF (None Seen); WBC,URINE 0-2 /HPF (0-3)
--- NOTE | 2019-10-21 11:00 | NUR ---
PAGED DR. LEMON.
--- NOTE | 2019-10-21 11:05 | NUR ---
DR GONZALEZ CALLED TALKING TO DR GONZALEZ.
[2019-10-21 12:05] VITALS: BP 147/73
--- NOTE | 2019-10-21 12:05 | NUR ---
IV removed. Catheter intact and site benign. Pressure and 4x4 applied to site. No bleeding noted.Patient discharged to home in stable condition. Written and verbal after care instructions given. Patient verbalizes understanding of instruction.
== END 2019-10-21 12:06 | disposition home or self-care (01) ==
LOC: ER 09:36
DX: N13.30 Unspecified hydronephrosis (principal); N20.0 Calculus of kidney; I10 Essential (primary) hypertension; K57.30 Diverticulosis of large intestine without perforation or abscess without bleeding; K74.60 Unspecified cirrhosis of liver; D72.829 Elevated white blood cell count, unspecified; R11.0 Nausea; R31.9 Hematuria, unspecified; E78.5 Hyperlipidemia, unspecified; M10.9 Gout, unspecified; Z86.73 Personal history of transient ischemic attack (TIA), and cerebral infarction without residual deficits; Z88.1 Allergy status to other antibiotic agents; Z88.5 Allergy status to narcotic agent; Z79.899 Other long term (current) drug therapy
CPT/HCPCS: 36415; 74176; 80048; 80076; 81001; 83690; 85025; 93005; 96374; 99285; J2405; 81000-TC

== ENCOUNTER 2022-11-05 13:24 | Outpatient (CLI) | payer MEDICARE, BC ==
[~2022-11-05 13:24] MED LIST changes: +CETI-108 PO; +CLOP75TA15 PO; -COLC0.6C3 PO; +COLLAGENASE 5 GM TUBE UD TP ONE; -OLME1TAB82 PO; +OLME5TAB6 PO; -OMEP40CA13 PO; -POTA15TA11 PO; -SERT50TA12 PO; +TRAZ-182 PO; +VENL37.591 PO
== END 2022-11-05 23:59 | disposition home health service (06) ==
LOC: WOU 13:24
PROVIDERS: ATTEND Surgery
DX: L89.223 Pressure ulcer of left hip, stage 3 (principal); M62.50 Muscle wasting and atrophy, not elsewhere classified, unspecified site; M10.9 Gout, unspecified; I10 Essential (primary) hypertension; E78.5 Hyperlipidemia, unspecified; Z87.891 Personal history of nicotine dependence
CPT/HCPCS: 11042

== ENCOUNTER 2022-11-12 13:30 | Outpatient (CLI) | payer MEDICARE, BC ==
[~2022-11-12 13:30] MED LIST changes: -COLLAGENASE 5 GM TUBE UD TP ONE
== END 2022-11-12 23:59 | disposition home health service (06) ==
LOC: WOU 13:30
PROVIDERS: ATTEND Surgery
DX: L89.223 Pressure ulcer of left hip, stage 3 (principal); M26.50 Dentofacial functional abnormalities, unspecified; I10 Essential (primary) hypertension; E78.5 Hyperlipidemia, unspecified; M10.9 Gout, unspecified
CPT/HCPCS: G0463

== ENCOUNTER 2024-01-27 22:20 | Inpatient (IN) | payer MEDICARE, BC ==
[~2024-01-27] VITALS: Ht 160 cm; Wt 63.7 kg
[2024-01-27] MEDS ORDERED: ONDANSETRON HCL/PF 4 MG/2 ML VIAL ONE (23:00)
[2024-01-27] MEDS: ONDANSETRON HCL/PF - ER 4 MG/2 ML VIAL IV ONE (23:39)
[2024-01-27] MEDS: IV NS 0.9% 1,000 ML IV ONE (23:39)
[2024-01-28 00:02] LABS: BASOPHILS % (AUTO) 0.2 % (0.0-2.0); EOSINOPHILS % (AUTO) 0.2 % (0.0-6.0); HEMATOCRIT 35 % (33-45); HEMOGLOBIN 11.9 g/dL (11.5-14.8); LYMPHOCYTES # (AUTO) 0.4 K/uL (0.8-4.8); LYMPHOCYTES % (AUTO) 2.6 % (20.0-44.0); MEAN CORPUSCULAR HEMOGLOBIN 31 PG (26.0-33.0); MEAN CORPUSCULAR HGB CONC 34 g/dl (31.0-36.0); MEAN CORPUSCULAR VOLUME 91 fL (82-100); MONOCYTES # (AUTO) 0.5 K/uL (0.1-1.30); NEUTROPHILS # (AUTO) 16.3 K/uL (1.8-8.9); PLATELET COUNT (AUTO) 187 K/uL (150-450); RED BLOOD CELL COUNT(AUTO) 3.87 MIL/uL (4.0-5.2); RED CELL DISTRIBUTION WIDTH 15.1 % (11.5-15.0); WHITE BLOOD COUNT (AUTO) 17.3 K/uL (4.3-11.0)
[2024-01-28 00:16] LABS: ALBUMIN 3.4 g/dL (3.4-5.0); BILIRUBIN,TOTAL 0.6 mg/dL (0.2-1.0); CALCIUM, SERUM 9.9 mg/dL (8.5-10.1); CREATININE 0.8 mg/dL (0.6-1.3); POTASSIUM 3.2 mmol/L (3.5-5.1); TOTAL PROTEIN, SERUM 7.6 g/dL (6.4-8.2)
[2024-01-28 00:19] LABS: LACTIC ACID 1.8 mmol/L (0.4-2.0)
[2024-01-28 01:29] LABS: APPEARANCE,URINE SLIGHTLY CLOUDY (CLEAR); BILIRUBIN,URINE NEGATIVE (NEGATIVE); BLOOD, URINE TRACE-INTA Ery/uL (NEGATIVE); COLOR,URINE YELLOW (YELLOW); KETONES,URINE NEGATIVE (NEGATIVE); LEUKOCYTE ESTERASE ,URINE NEGATIVE (NEGATIVE); NITRITE, URINE NEGATIVE (NEGATIVE); PROTEIN,URINE NEGATIVE (NEGATIVE); UGLUCOSE NEGATIVE (NEGATIVE); UROBILINOGEN,URINE 0.2 EU/dL (0.2)
[2024-01-28 01:32] LABS: ADD URINE CULTURE NO; BACTERIA,URINE None seen /HPF (None Seen); SQUAMOUS EPITHELIAL CELL,UR Few /HPF (None Seen); WBC,URINE 0-2 /HPF (0-3)
[2024-01-28] MEDS ORDERED: FUROSEMIDE 40 MG/4 ML VIAL ONE (02:16)
[2024-01-28] MEDS: FUROSEMIDE 40 MG/4 ML VIAL IV ONE ×2 (02:35→20:12)
[2024-01-28 03:30] VITALS: BP 121/49; TEMP 99; O2SAT 97
[2024-01-28] MEDS ORDERED: Z GUARD REMEDY 4 OZ OINT TP PRN (03:30)
[2024-01-28] MEDS ORDERED: MAGNESIUM HYDROXIDE 30 ML UDC PO PRN (03:30)
[2024-01-28] MEDS ORDERED: MAG HYDROX/AL HYDROX/SIMETH 30 ML UDC PO PRN (03:30)
[2024-01-28] MEDS ORDERED: ONDANSETRON HCL/PF 4 MG/2 ML VIAL IVP PRN (03:30)
[2024-01-28] MEDS ORDERED: ZOLPIDEM TARTRATE 5 MG TABLET PO PRN (03:30)
[2024-01-28] MEDS: CEFTRIAXONE 1GM BAG (ER ONLY) 50 ML IV ONE (03:56)
[2024-01-28] MEDS: POTASSIUM CHLORIDE 20 MEQ TAB.PRT.SR PO ONE (03:57)
[2024-01-28] MEDS: CEFTRIAXONE 1 G in IV D5W 50 ML IV ONE (03:58)
[2024-01-28 05:22] VITALS: O2SAT 99
[2024-01-28] MEDS ORDERED: AZITHROMYCIN 500 MG VIAL ONE (05:22)
[2024-01-28] MEDS: AZITHROMYCIN 500 MG in IV D5W 250 ML IV ONE (05:51)
[2024-01-28 07:37] LABS: BASOPHILS % (AUTO) 0.1 % (0.0-2.0); EOSINOPHILS % (AUTO) 0.1 % (0.0-6.0); HEMATOCRIT 36 % (33-45); LYMPHOCYTES # (AUTO) 0.3 K/uL (0.8-4.8); LYMPHOCYTES % (AUTO) 1.5 % (20.0-44.0); MEAN CORPUSCULAR HEMOGLOBIN 30 PG (26.0-33.0); MEAN CORPUSCULAR HGB CONC 33 g/dl (31.0-36.0); MEAN CORPUSCULAR VOLUME 91 fL (82-100); MONOCYTES # (AUTO) 0.6 K/uL (0.1-1.30); MONOCYTES % (AUTO) 2.9 % (2.0-12.0); NEUTROPHILS # (AUTO) 20.4 K/uL (1.8-8.9); NEUTROPHILS % (AUTO) 95.4 % (43.0-81.0); PLATELET COUNT (AUTO) 197 K/uL (150-450); RED BLOOD CELL COUNT(AUTO) 3.99 MIL/uL (4.0-5.2); RED CELL DISTRIBUTION WIDTH 15.1 % (11.5-15.0); WHITE BLOOD COUNT (AUTO) 21.4 K/uL (4.3-11.0)
[2024-01-28 08:18] VITALS: BP 114/69; TEMP 98.6; O2SAT 96
[2024-01-28 08:36] LABS: CALCIUM, SERUM 9.6 mg/dL (8.5-10.1); CREATININE 0.8 mg/dL (0.6-1.3); MAGNESIUM 1.6 mg/dL (1.8-2.4); PHOSPHORUS 4.2 mg/dL (2.5-4.9); POTASSIUM 3.6 mmol/L (3.5-5.1)
[2024-01-28 08:48] LABS: THYROID STIMULATING HORMONE 1.984 uIU/mL (0.358-3.74)
[2024-01-28] MEDS ORDERED: ALLO100T PO (08:54)
[2024-01-28] MEDS ORDERED: NITR100C15 PO (08:54)
[2024-01-28] MEDS ORDERED: POTA8CAP20 PO (08:54)
[2024-01-28] MEDS ORDERED: ACET-2030 PO (08:54)
[2024-01-28] MEDS ORDERED: AMLO-212 PO (08:54)
[2024-01-28] MEDS ORDERED: APIX5TAB PO (08:54)
[2024-01-28] MEDS ORDERED: FOSF3PAC PO (08:54)
[2024-01-28] MEDS ORDERED: PANT40TA49 PO (08:54)
[2024-01-28] MEDS ORDERED: CHOL500062 PO (08:54)
[2024-01-28] MEDS ORDERED: FISH OIL PO (08:54)
[2024-01-28] MEDS ORDERED: FURO-145 PO (08:54)
[2024-01-28] MEDS: FUROSEMIDE 40 MG/4 ML VIAL IV SCH (08:59)
[2024-01-28] MEDS: POTASSIUM CHLORIDE 20 MEQ TAB.PRT.SR PO SCH (08:59)
[2024-01-28] MEDS: ACETAMINOPHEN 325 MG TABLET PO PRN (09:00)
[2024-01-28] MEDS: PANTOPRAZOLE 40 MG TABLET.DR PO SCH (09:00)
[2024-01-28] MEDS ORDERED: FUROSEMIDE 20 MG/2 ML VIAL IV SCH (09:00)
[2024-01-28] MEDS: ENOXAPARIN SODIUM 40 MG/0.4 ML DISP.SYRIN SQ SCH (09:01)
[2024-01-28] MEDS: MAGNESIUM OXIDE 400 MG TABLET PO ONE (10:29)
[2024-01-28 16:02] VITALS: BP 113/64; TEMP 99; O2SAT 96
[2024-01-28 20:00] VITALS: BP 115/59; TEMP 98.8; O2SAT 100
[2024-01-29] VITALS (8 sets, daily range): BP systolic 107–116; BP diastolic 49–81; TEMP 97.9–99.1; O2SAT 93–97
[2024-01-29 06:36] LABS: BASOPHILS % (AUTO) 0.2 % (0.0-2.0); EOSINOPHILS # (AUTO) 0.4 K/uL (0.0-0.7); EOSINOPHILS % (AUTO) 2.6 % (0.0-6.0); HEMATOCRIT 34 % (33-45); HEMOGLOBIN 11.5 g/dL (11.5-14.8); LYMPHOCYTES # (AUTO) 0.7 K/uL (0.8-4.8); LYMPHOCYTES % (AUTO) 4.3 % (20.0-44.0); MEAN CORPUSCULAR HEMOGLOBIN 31 PG (26.0-33.0); MEAN CORPUSCULAR HGB CONC 34 g/dl (31.0-36.0); MEAN CORPUSCULAR VOLUME 91 fL (82-100); MONOCYTES # (AUTO) 0.7 K/uL (0.1-1.30); MONOCYTES % (AUTO) 4.8 % (2.0-12.0); NEUTROPHILS # (AUTO) 13.7 K/uL (1.8-8.9); NEUTROPHILS % (AUTO) 88.1 % (43.0-81.0); PLATELET COUNT (AUTO) 195 K/uL (150-450); RED BLOOD CELL COUNT(AUTO) 3.76 MIL/uL (4.0-5.2); RED CELL DISTRIBUTION WIDTH 14.9 % (11.5-15.0); WHITE BLOOD COUNT (AUTO) 15.5 K/uL (4.3-11.0)
[2024-01-29 06:53] LABS: BILIRUBIN,TOTAL 0.9 mg/dL (0.2-1.0); CALCIUM, SERUM 9.7 mg/dL (8.5-10.1); CREATININE 0.9 mg/dL (0.6-1.3); MAGNESIUM 1.9 mg/dL (1.8-2.4); PHOSPHORUS 4.3 mg/dL (2.5-4.9); POTASSIUM 3.9 mmol/L (3.5-5.1); TOTAL PROTEIN, SERUM 7.5 g/dL (6.4-8.2)
[2024-01-29] MEDS: CEFTRIAXONE 1 G in IV D5W 50 ML IV SCH (08:13)
[2024-01-29] MEDS: AZITHROMYCIN 500 MG in IV D5W 250 ML IV SCH (09:00)
[2024-01-29] MEDS: FUROSEMIDE 40 MG/4 ML VIAL IV SCH (11:23)
[2024-01-29] MEDS: POTASSIUM CHLORIDE 20 MEQ TAB.PRT.SR PO SCH (11:23)
[2024-01-29] MEDS: METOPROLOL TARTRATE 50 MG TABLET PO SCH (11:33)
[2024-01-29] MEDS: TRAZODONE 50 MG TABLET PO SCH (21:46)
[2024-01-29] MEDS: APIXABAN 5 MG TABLET PO SCH (21:47)
[2024-01-30 07:00] LABS: BASOPHILS % (AUTO) 0.2 % (0.0-2.0); EOSINOPHILS # (AUTO) 0.5 K/uL (0.0-0.7); EOSINOPHILS % (AUTO) 4.3 % (0.0-6.0); HEMATOCRIT 37 % (33-45); HEMOGLOBIN 12.3 g/dL (11.5-14.8); LYMPHOCYTES # (AUTO) 0.8 K/uL (0.8-4.8); LYMPHOCYTES % (AUTO) 7.1 % (20.0-44.0); MEAN CORPUSCULAR HEMOGLOBIN 30 PG (26.0-33.0); MEAN CORPUSCULAR HGB CONC 33 g/dl (31.0-36.0); MEAN CORPUSCULAR VOLUME 91 fL (82-100); MONOCYTES # (AUTO) 0.7 K/uL (0.1-1.30); MONOCYTES % (AUTO) 6.4 % (2.0-12.0); PLATELET COUNT (AUTO) 240 K/uL (150-450); RED BLOOD CELL COUNT(AUTO) 4.06 MIL/uL (4.0-5.2); RED CELL DISTRIBUTION WIDTH 15.1 % (11.5-15.0); WHITE BLOOD COUNT (AUTO) 10.9 K/uL (4.3-11.0)
[2024-01-30 07:29] LABS: CREATININE 1.2 mg/dL (0.6-1.3); MAGNESIUM 1.9 mg/dL (1.8-2.4); PHOSPHORUS 3.9 mg/dL (2.5-4.9); POTASSIUM 4.4 mmol/L (3.5-5.1); TOTAL PROTEIN, SERUM 7.7 g/dL (6.4-8.2)
[2024-01-30 07:30] VITALS: BP 108/54; TEMP 98.8; O2SAT 95
[2024-01-30] MEDS: ALLOPURINOL 100 MG TABLET PO SCH (09:42)
[2024-01-30] MEDS: AMLODIPINE BESYLATE 5 MG TABLET PO SCH (09:46)
[2024-01-30 16:00] VITALS: BP 95/44; TEMP 98.8; O2SAT 97
[2024-01-30 20:00] VITALS: BP 101/57; TEMP 98.8; O2SAT 95
[2024-01-30 20:18] VITALS: BP 101/57; TEMP 98.8; O2SAT 95
[2024-01-31 05:15] VITALS: O2SAT 95
[2024-01-31 06:42] LABS: BASOPHILS % (AUTO) 0.4 % (0.0-2.0); EOSINOPHILS # (AUTO) 0.5 K/uL (0.0-0.7); HEMATOCRIT 35 % (33-45); HEMOGLOBIN 11.9 g/dL (11.5-14.8); LYMPHOCYTES # (AUTO) 0.9 K/uL (0.8-4.8); LYMPHOCYTES % (AUTO) 9.2 % (20.0-44.0); MEAN CORPUSCULAR HEMOGLOBIN 31 PG (26.0-33.0); MEAN CORPUSCULAR HGB CONC 34 g/dl (31.0-36.0); MEAN CORPUSCULAR VOLUME 90 fL (82-100); MONOCYTES # (AUTO) 0.6 K/uL (0.1-1.30); MONOCYTES % (AUTO) 6.1 % (2.0-12.0); NEUTROPHILS # (AUTO) 7.8 K/uL (1.8-8.9); NEUTROPHILS % (AUTO) 79.3 % (43.0-81.0); PLATELET COUNT (AUTO) 215 K/uL (150-450); RED BLOOD CELL COUNT(AUTO) 3.88 MIL/uL (4.0-5.2); WHITE BLOOD COUNT (AUTO) 9.8 K/uL (4.3-11.0)
[2024-01-31 06:54] LABS: CALCIUM, SERUM 9.7 mg/dL (8.5-10.1); CARBON DIOXIDE 32 mmol/L (21-32); CHLORIDE 100 mmol/L (98-107); GLUCOSE 104 mg/dL (74-106); MAGNESIUM 2.1 mg/dL (1.8-2.4); SODIUM SERUM 138 mmol/L (136-145); UREA NITROGEN, BLOOD 37 mg/dL (7-18)
[2024-01-31 08:00] VITALS: BP 105/50; TEMP 97.4; O2SAT 98
[2024-01-31 08:06] VITALS: O2SAT 97
[2024-01-31 16:00] VITALS: BP 111/55; TEMP 98.1; O2SAT 94
[2024-01-31 20:00] VITALS: BP_SYST 114; BP_DIAS 55; BP_DIAS 56; TEMP 98.2; TEMP 98.8; O2SAT 96
[2024-02-01 04:53] VITALS: O2SAT 96
[2024-02-01 06:48] LABS: BASOPHILS # (AUTO) 0.1 K/uL (0.0-0.2); BASOPHILS % (AUTO) 0.6 % (0.0-2.0); EOSINOPHILS # (AUTO) 0.5 K/uL (0.0-0.7); EOSINOPHILS % (AUTO) 5.7 % (0.0-6.0); HEMATOCRIT 35 % (33-45); HEMOGLOBIN 11.8 g/dL (11.5-14.8); LYMPHOCYTES # (AUTO) 1.2 K/uL (0.8-4.8); LYMPHOCYTES % (AUTO) 13.2 % (20.0-44.0); MEAN CORPUSCULAR HEMOGLOBIN 31 PG (26.0-33.0); MEAN CORPUSCULAR HGB CONC 34 g/dl (31.0-36.0); MEAN CORPUSCULAR VOLUME 91 fL (82-100); MONOCYTES # (AUTO) 0.7 K/uL (0.1-1.30); NEUTROPHILS # (AUTO) 6.8 K/uL (1.8-8.9); NEUTROPHILS % (AUTO) 72.5 % (43.0-81.0); PLATELET COUNT (AUTO) 220 K/uL (150-450); RED BLOOD CELL COUNT(AUTO) 3.87 MIL/uL (4.0-5.2); RED CELL DISTRIBUTION WIDTH 14.8 % (11.5-15.0); WHITE BLOOD COUNT (AUTO) 9.4 K/uL (4.3-11.0)
[2024-02-01 07:08] LABS: *SPE A/G RATIO 0.9 (0.7-1.7); *SPE ALBUMIN 3.4 g/dL (2.9-4.4); *SPE ALPHA-1-GLOBULIN 0.3 g/dL (0.0-0.4); *SPE BETA GLOBULIN 1.4 g/dL (0.7-1.3); *SPE GLOBULIN, TOTAL 3.7 g/dL (2.2-3.9); *SPE M-SPIKE Not Observed g/dL (Not Observed); *SPE PROTEIN TOTAL 7.1 g/dL (6.0-8.5)
[2024-02-01 07:26] VITALS: O2SAT 94
[2024-02-01 07:54] LABS: CREATININE 0.9 mg/dL (0.6-1.3); MAGNESIUM 2.3 mg/dL (1.8-2.4); PHOSPHORUS 3.8 mg/dL (2.5-4.9); POTASSIUM 4.4 mmol/L (3.5-5.1)
[2024-02-01] MEDS: AZITHROMYCIN 250 MG TABLET PO SCH (08:12)
[2024-02-01 08:16] VITALS: BP 96/47
[2024-02-01 10:16] LABS: ABG BASE EXCESS 5.2 mmol/L; ABG OXYGEN SATURATION 96.2 % (92.0-98.5); ABG PCO2 42.9 mmHg (35.0-45.0); ABG PH 7.457 (7.350-7.450); ABG TOTAL HEMOGLOBIN 12.4 G/dL (12.0-16.0); COHb 0.1 % (0.5-1.5); MetHb 0.2 % (0.0-1.5); O2Hb 95.9 % (94.0-97.0); SITE, ABG Left Radial; VENT MODE, BG 2L NC
== END 2024-02-01 16:29 | disposition home health service (06) | DRG 193 ==
LOC: ER 22:24 → TELE 01-28 02:40 → MED 01-29 10:23
PROVIDERS: ADMIT Nurse Practitioner Acute Care; ATTEND Student in an Organized Health Care Education/Training Program
DX: J15.9 Unspecified bacterial pneumonia (principal); I50.33 Acute on chronic diastolic (congestive) heart failure; K65.4 Sclerosing mesenteritis; I13.0 Hypertensive heart and chronic kidney disease with heart failure and stage 1 through stage 4 chronic kidney disease, or unspecified chronic kidney disease; J90 Pleural effusion, not elsewhere classified; Z86.73 Personal history of transient ischemic attack (TIA), and cerebral infarction without residual deficits; Z87.442 Personal history of urinary calculi; Z91.81 History of falling; Z88.1 Allergy status to other antibiotic agents; Z88.5 Allergy status to narcotic agent; Z79.02 Long term (current) use of antithrombotics/antiplatelets; Z79.01 Long term (current) use of anticoagulants; N18.9 Chronic kidney disease, unspecified; Z66 Do not resuscitate; Z79.899 Other long term (current) drug therapy; E87.6 Hypokalemia; M10.9 Gout, unspecified; L40.9 Psoriasis, unspecified; Z90.49 Acquired absence of other specified parts of digestive tract; Z82.49 Family history of ischemic heart disease and other diseases of the circulatory system; D72.829 Elevated white blood cell count, unspecified; E66.9 Obesity, unspecified; E83.42 Hypomagnesemia; Z68.24 Body mass index [BMI] 24.0-24.9, adult; E78.5 Hyperlipidemia, unspecified; E88.09 Other disorders of plasma-protein metabolism, not elsewhere classified; I05.0 Rheumatic mitral stenosis; Z87.891 Personal history of nicotine dependence; R73.9 Hyperglycemia, unspecified; Z87.01 Personal history of pneumonia (recurrent); H54.40 Blindness, one eye, unspecified eye; Z87.828 Personal history of other (healed) physical injury and trauma
CPT/HCPCS: 36415; 36600; 70450-TC; 71045-TC; 71250-TC; 80048-TC; 80053-TC; 80061-TC; 81001; 82803-TC; 83605-TC; 83690-TC; 83735-TC; 83880; 84100-TC; 84155; 84165; 84443-TC; 84484-TC; 85025-TC; 92526; 92611-TC; 93307-TC; 94760-TC; 94761-TC; 94762-TC; 94799-TC; 97110-TC; 97116-TC; 97530-TC; A4223; G0378; J0456; J0696; J1650; J1940; J2405; J7030; J7050; J7060

== ENCOUNTER 2025-01-31 08:51 | Inpatient (IN) | payer BC, MEDICARE ==
[~2025-01-31] VITALS: Ht 152.4 cm; Wt 71.7 kg
[2025-01-31] VITALS (7 sets, daily range): BP systolic 104–109; BP diastolic 45–54; TEMP 97.6–99; O2SAT 95–100
[~2025-01-31 08:51] MED LIST changes: +ACET-2030 PO; +ALLO100T PO; +AMLO-212 PO; -APIX2.5T PO; +APIX5TAB PO; -APRE30TA2 PO; -CETI-108 PO; +CHOL500062 PO; -CLOP75TA15 PO; -FEBU80TA PO; +FISH OIL PO; +FOSF3PAC PO; +FURO-145 PO; -HYDR10SY16 PO; +NITR100C15 PO; -OLME5TAB6 PO; +PANT40TA49 PO; +POTA8CAP20 PO; -ROSU5TAB13 PO; -VENL37.591 PO
[2025-01-31] MEDS ORDERED: ACETAMINOPHEN 325 MG TABLET ONE (09:19)
[2025-01-31] MEDS: IV NS 0.9% 1,000 ML BAG IV ONE (09:20)
[2025-01-31 09:23] LABS: BASOPHILS % (AUTO) 0.1 % (0.0-2.0); EOSINOPHILS % (AUTO) 0.2 % (0.0-6.0); HEMATOCRIT 38 % (33-45); HEMOGLOBIN 12.6 g/dL (11.5-14.8); LYMPHOCYTES # (AUTO) 0.4 K/uL (0.8-4.8); MEAN CORPUSCULAR HEMOGLOBIN 30 PG (26.0-33.0); MEAN CORPUSCULAR HGB CONC 33 g/dl (31.0-36.0); MEAN CORPUSCULAR VOLUME 93 fL (82-100); MONOCYTES # (AUTO) 0.3 K/uL (0.1-1.30); MONOCYTES % (AUTO) 1.5 % (2.0-12.0); NEUTROPHILS # (AUTO) 19.6 K/uL (1.8-8.9); NEUTROPHILS % (AUTO) 96.2 % (43.0-81.0); PLATELET COUNT (AUTO) 238 K/uL (150-450); RED BLOOD CELL COUNT(AUTO) 4.15 MIL/uL (4.0-5.2); RED CELL DISTRIBUTION WIDTH 14.6 % (11.5-15.0); WHITE BLOOD COUNT (AUTO) 20.4 K/uL (4.3-11.0)
[2025-01-31] MEDS: CEFTRIAXONE 1GM BAG (ER ONLY) 50 ML IV ONE (09:30)
[2025-01-31 09:32] LABS: CALCIUM, SERUM 9.8 mg/dL (8.5-10.1); CARBON DIOXIDE 31 mmol/L (21-32); CHLORIDE 99 mmol/L (98-107); CREATININE 0.9 mg/dL (0.6-1.3); GLUCOSE 137 mg/dL (74-106); POTASSIUM 4.1 mmol/L (3.5-5.1); SODIUM SERUM 138 mmol/L (136-145); UREA NITROGEN, BLOOD 18 mg/dL (7-18)
[2025-01-31] MEDS: ACETAMINOPHEN 325 MG TABLET PO ONE (09:35)
[2025-01-31 09:36] LABS: INR 0.94 (0.91-1.10); PARTIAL THROMBOPLASTIN TIME 29.9 SEC (24.3-34.3)
[2025-01-31 09:37] LABS: ALANINE AMINOTRANSFERASE 15 U/L (12-78); ALBUMIN 3.7 g/dL (3.4-5.0); ALKALINE PHOSPHATASE 87 U/L (46-116); ASPARTATE AMINOTRANSFERASE 9 U/L (15-37); BILIRUBIN,DIRECT 0.3 mg/dL (0.0-0.2); BILIRUBIN,TOTAL 1.2 mg/dL (0.2-1.0); TOTAL PROTEIN, SERUM 7.8 g/dL (6.4-8.2)
[2025-01-31 09:43] LABS: ABG OXYGEN SATURATION 93.7 % (94.0-98.0); ABG PCO2 37.1 mmHg (32.0-45.0); ABG PH 7.459 (7.350-7.450); ABG PO2 67.3 mmHg (83.0-108.0); ABG TOTAL HEMOGLOBIN 12.7 G/dL (12.0-16.0); COHb 0.5 % (0.5-1.5); O2Hb 93.2 % (94.0-97.0); SITE, ABG RIGHT RADIAL
[2025-01-31] MEDS: AZITHROMYCIN 500 MG in IV D5W 250 ML IV ONE (10:15)
[2025-01-31 10:41] LABS: APPEARANCE,URINE CLEAR (CLEAR); BILIRUBIN,URINE Negative (NEGATIVE); BLOOD, URINE Moderate Ery/uL (NEGATIVE); COLOR,URINE YELLOW (YELLOW); KETONES,URINE Negative (NEGATIVE); LEUKOCYTE ESTERASE ,URINE Small (NEGATIVE); PROTEIN,URINE 100 mg/dl (NEGATIVE); UGLUCOSE Negative (NEGATIVE); UROBILINOGEN,URINE 0.2 EU/dL (0.2)
[2025-01-31 10:46] LABS: NITRITE, URINE NEGATIVE (NEGATIVE)
[2025-01-31] MEDS ORDERED: LATA2.5D15 RIGHTEYE (10:53)
[2025-01-31] MEDS ORDERED: BRIM5DRO5 RIGHTEYE (10:53)
[2025-01-31] MEDS ORDERED: GABA-532 PO (10:53)
[2025-01-31] MEDS ORDERED: PANT20TA17 PO (10:53)
[2025-01-31] MEDS ORDERED: CYCL30DR EACHEYE (10:53)
[2025-01-31] MEDS ORDERED: TIMO5DRO18 RIGHTEYE (10:53)
[2025-01-31] MEDS ORDERED: MULT-594 PO (10:53)
[2025-01-31] MEDS ORDERED: MAG HYDROX/AL HYDROX/SIMETH 30 ML UDC PO PRN (11:00)
[2025-01-31] MEDS ORDERED: MAGNESIUM HYDROXIDE 30 ML UDC PO PRN (11:00)
[2025-01-31] MEDS ORDERED: Z GUARD REMEDY 4 OZ OINT TP PRN (11:00)
[2025-01-31 11:02] LABS: ADD URINE CULTURE YES; BACTERIA,URINE Rare /HPF (None Seen); SQUAMOUS EPITHELIAL CELL,UR Few /HPF (None Seen); WBC,URINE TOO NUMEROUS TO COUN /HPF (0-3)
[2025-01-31 11:06] LABS: LYMPHOCYTES % (MANUAL) 3 % (16-48); MONOCYTES % (MANUAL) 4 % (0-11.0); NEUTROPHILS % (MANUAL) 93 (42-76); PLATELET ESTIMATE ADEQUATE; STOMATOCYTES 1+
[2025-01-31] MEDS: IPRATROPIUM NEB FS 0.5 MG/2.5 ML AMPUL.NEB NEB SCH (14:47)
[2025-01-31] MEDS: ALBUTEROL HALF STRENGTH 1.25 MG/3 ML VIAL.NEB NEB SCH (14:47)
[2025-01-31] MEDS: ACETAMINOPHEN 325 MG TABLET PO PRN (15:28)
[2025-01-31] MEDS: ENOXAPARIN SODIUM 40 MG/0.4 ML DISP.SYRIN SQ SCH (15:50)
[2025-02-01] VITALS (13 sets, daily range): BP systolic 105–135; BP diastolic 51–74; TEMP 97.3–99; O2SAT 92–99
[2025-02-01 06:42] LABS: BASOPHILS % (AUTO) 0.2 % (0.0-2.0); EOSINOPHILS % (AUTO) 0.2 % (0.0-6.0); HEMATOCRIT 32 % (33-45); HEMOGLOBIN 10.7 g/dL (11.5-14.8); LYMPHOCYTES # (AUTO) 0.7 K/uL (0.8-4.8); LYMPHOCYTES % (AUTO) 4.4 % (20.0-44.0); MEAN CORPUSCULAR HEMOGLOBIN 31 PG (26.0-33.0); MEAN CORPUSCULAR HGB CONC 33 g/dl (31.0-36.0); MEAN CORPUSCULAR VOLUME 92 fL (82-100); MONOCYTES # (AUTO) 0.6 K/uL (0.1-1.30); MONOCYTES % (AUTO) 3.7 % (2.0-12.0); NEUTROPHILS # (AUTO) 14.8 K/uL (1.8-8.9); NEUTROPHILS % (AUTO) 91.5 % (43.0-81.0); PLATELET COUNT (AUTO) 194 K/uL (150-450); RED BLOOD CELL COUNT(AUTO) 3.51 MIL/uL (4.0-5.2); RED CELL DISTRIBUTION WIDTH 15.2 % (11.5-15.0); WHITE BLOOD COUNT (AUTO) 16.2 K/uL (4.3-11.0)
[2025-02-01 07:12] LABS: CALCIUM, SERUM 8.7 mg/dL (8.5-10.1); CREATININE 0.6 mg/dL (0.6-1.3); MAGNESIUM 2.3 mg/dL (1.8-2.4); PHOSPHORUS 3.5 mg/dL (2.5-4.9); POTASSIUM 4.3 mmol/L (3.5-5.1)
[2025-02-01] MEDS: CEFTRIAXONE 1 G in IV D5W 50 ML IV SCH (08:42)
[2025-02-01] MEDS: AZITHROMYCIN 500 MG in IV D5W 250 ML IV SCH (10:51)
[2025-02-01] MEDS: IV D5/0.45 NACL 1,000 ML IV PRN (18:20)
[2025-02-02] VITALS (14 sets, daily range): BP systolic 112–131; BP diastolic 59–70; TEMP 98.2–100; O2SAT 87–98
[2025-02-02] MEDS: ONDANSETRON HCL/PF 4 MG/2 ML VIAL IVP PRN (09:02)
[2025-02-02] MEDS: ENSURE ENLIVE CHOC 237 ML CAN PO SCH (17:00)
[2025-02-02] MEDS: FUROSEMIDE 20 MG/2 ML VIAL IV SCH (17:59)
[2025-02-03] VITALS (13 sets, daily range): BP systolic 117–131; BP diastolic 62–70; TEMP 97–99.1; O2SAT 93–99
[2025-02-03 06:36] LABS: BASOPHILS % (AUTO) 0.4 % (0.0-2.0); EOSINOPHILS # (AUTO) 0.2 K/uL (0.0-0.7); EOSINOPHILS % (AUTO) 1.7 % (0.0-6.0); HEMATOCRIT 35 % (33-45); HEMOGLOBIN 11.3 g/dL (11.5-14.8); LYMPHOCYTES # (AUTO) 0.8 K/uL (0.8-4.8); LYMPHOCYTES % (AUTO) 7.9 % (20.0-44.0); MEAN CORPUSCULAR HEMOGLOBIN 30 PG (26.0-33.0); MEAN CORPUSCULAR HGB CONC 32 g/dl (31.0-36.0); MEAN CORPUSCULAR VOLUME 94 fL (82-100); MONOCYTES # (AUTO) 0.8 K/uL (0.1-1.30); MONOCYTES % (AUTO) 7.7 % (2.0-12.0); NEUTROPHILS # (AUTO) 8.8 K/uL (1.8-8.9); NEUTROPHILS % (AUTO) 82.3 % (43.0-81.0); PLATELET COUNT (AUTO) 207 K/uL (150-450); RED BLOOD CELL COUNT(AUTO) 3.74 MIL/uL (4.0-5.2); RED CELL DISTRIBUTION WIDTH 15.2 % (11.5-15.0); WHITE BLOOD COUNT (AUTO) 10.7 K/uL (4.3-11.0)
[2025-02-03 06:53] LABS: CALCIUM, SERUM 9.3 mg/dL (8.5-10.1); CREATININE 0.5 mg/dL (0.6-1.3); MAGNESIUM 2.3 mg/dL (1.8-2.4); PHOSPHORUS 3.4 mg/dL (2.5-4.9); POTASSIUM 3.6 mmol/L (3.5-5.1)
[2025-02-03] MEDS: TRAZODONE 50 MG TABLET PO PRN (21:39)
[2025-02-04] VITALS (11 sets, daily range): BP systolic 96–134; BP diastolic 41–67; TEMP 98.1–99.3; O2SAT 93–99
[2025-02-04 10:18] LABS: BASOPHILS % (AUTO) 0.3 % (0.0-2.0); EOSINOPHILS # (AUTO) 0.2 K/uL (0.0-0.7); EOSINOPHILS % (AUTO) 2.6 % (0.0-6.0); HEMATOCRIT 34 % (33-45); LYMPHOCYTES # (AUTO) 0.9 K/uL (0.8-4.8); LYMPHOCYTES % (AUTO) 10.3 % (20.0-44.0); MEAN CORPUSCULAR HEMOGLOBIN 31 PG (26.0-33.0); MEAN CORPUSCULAR HGB CONC 32 g/dl (31.0-36.0); MEAN CORPUSCULAR VOLUME 94 fL (82-100); MONOCYTES # (AUTO) 0.7 K/uL (0.1-1.30); MONOCYTES % (AUTO) 7.8 % (2.0-12.0); NEUTROPHILS # (AUTO) 7.3 K/uL (1.8-8.9); PLATELET COUNT (AUTO) 218 K/uL (150-450); RED BLOOD CELL COUNT(AUTO) 3.62 MIL/uL (4.0-5.2); WHITE BLOOD COUNT (AUTO) 9.2 K/uL (4.3-11.0)
[2025-02-04 10:29] LABS: CALCIUM, SERUM 9.1 mg/dL (8.5-10.1); CREATININE 0.5 mg/dL (0.6-1.3); POTASSIUM 3.7 mmol/L (3.5-5.1)
[2025-02-05] VITALS: BP 129/61; TEMP 98.5; O2SAT 95
[2025-02-05 04:00] VITALS: BP 118/71; TEMP 98.9; O2SAT 96
[2025-02-05 07:26] VITALS: O2SAT 95
[2025-02-05 07:43] VITALS: O2SAT 98
[2025-02-05 08:00] VITALS: BP 129/62; TEMP 98.2; O2SAT 96
[2025-02-05 08:50] LABS: CALCIUM, SERUM 9.3 mg/dL (8.5-10.1); CREATININE 0.4 mg/dL (0.6-1.3); MAGNESIUM 2.5 mg/dL (1.8-2.4); PHOSPHORUS 3.3 mg/dL (2.5-4.9); POTASSIUM 3.7 mmol/L (3.5-5.1)
[2025-02-05 09:09] LABS: BASOPHILS % (AUTO) 0.3 % (0.0-2.0); EOSINOPHILS # (AUTO) 0.3 K/uL (0.0-0.7); EOSINOPHILS % (AUTO) 2.9 % (0.0-6.0); HEMATOCRIT 34 % (33-45); HEMOGLOBIN 11.1 g/dL (11.5-14.8); LYMPHOCYTES # (AUTO) 1.1 K/uL (0.8-4.8); LYMPHOCYTES % (AUTO) 10.4 % (20.0-44.0); MEAN CORPUSCULAR HEMOGLOBIN 31 PG (26.0-33.0); MEAN CORPUSCULAR HGB CONC 33 g/dl (31.0-36.0); MEAN CORPUSCULAR VOLUME 93 fL (82-100); MONOCYTES # (AUTO) 0.9 K/uL (0.1-1.30); MONOCYTES % (AUTO) 8.3 % (2.0-12.0); NEUTROPHILS # (AUTO) 8.2 K/uL (1.8-8.9); NEUTROPHILS % (AUTO) 78.1 % (43.0-81.0); PLATELET COUNT (AUTO) 255 K/uL (150-450); RED BLOOD CELL COUNT(AUTO) 3.62 MIL/uL (4.0-5.2); RED CELL DISTRIBUTION WIDTH 14.7 % (11.5-15.0); WHITE BLOOD COUNT (AUTO) 10.5 K/uL (4.3-11.0)
[2025-02-05] MEDS ORDERED: FURO-144 PO (09:34)
[2025-02-05] MEDS ORDERED: AZIT250T13 PO (09:34)
[2025-02-05] MEDS: APIXABAN 5 MG TABLET PO SCH (10:52)
== END 2025-02-05 13:44 | disposition home health service (06) | DRG 871 ==
LOC: ER 08:52 → TELE1 10:54
PROVIDERS: ADMIT Internal Medicine; ATTEND Internal Medicine
DX: A41.9 Sepsis, unspecified organism (principal); I50.33 Acute on chronic diastolic (congestive) heart failure; J15.9 Unspecified bacterial pneumonia; J96.21 Acute and chronic respiratory failure with hypoxia; N39.0 Urinary tract infection, site not specified; R65.20 Severe sepsis without septic shock; I11.0 Hypertensive heart disease with heart failure; I69.398 Other sequelae of cerebral infarction; H54.62 Unqualified visual loss, left eye, normal vision right eye; E78.5 Hyperlipidemia, unspecified; L40.9 Psoriasis, unspecified; Z87.442 Personal history of urinary calculi; Z87.891 Personal history of nicotine dependence; Z87.440 Personal history of urinary (tract) infections; Z82.49 Family history of ischemic heart disease and other diseases of the circulatory system; Z79.899 Other long term (current) drug therapy; Z79.01 Long term (current) use of anticoagulants; Z99.81 Dependence on supplemental oxygen; Z88.2 Allergy status to sulfonamides; Z88.1 Allergy status to other antibiotic agents; I25.10 Atherosclerotic heart disease of native coronary artery without angina pectoris
CPT/HCPCS: 36415; 36600; 71045-TC; 71250-TC; 80048-TC; 80076-TC; 81001; 82803-TC; 83605-TC; 83735-TC; 84100-TC; 84484-TC; 85025-TC; 85730-TC; 87040-TC; 87086-TC; 93307-TC; 94760-TC; 94799-TC; 97110-TC; 97116-TC; 97530-TC; A4223; G0378; J0456; J0696; J1650; J1938; J2405; J3490; J7050; J7060

== ENCOUNTER 2025-03-10 17:27 | Inpatient (IN) | payer MEDICARE, OTHER ==
[~2025-03-10] VITALS: Ht 147.3 cm; Wt 72.6 kg
[~2025-03-10 17:27] MED LIST changes: +AZIT250T13 PO; +BRIM5DRO5 RIGHTEYE; +CYCL30DR EACHEYE; -FOSF3PAC PO; +FURO-144 PO; +GABA-532 PO; +LATA2.5D15 RIGHTEYE; +MULT-594 PO; -NITR100C15 PO; +PANT20TA17 PO; -PANT40TA49 PO; +TIMO5DRO18 RIGHTEYE; -TRAZ-182 PO
[2025-03-10 18:14] LABS: PLATELET COUNT (AUTO) 279 K/uL (150-450); RED BLOOD CELL COUNT(AUTO) 4.15 MIL/uL (4.0-5.2); RED CELL DISTRIBUTION WIDTH 16.1 % (11.5-15.0); WHITE BLOOD COUNT (AUTO) 13.5 K/uL (4.3-11.0)
[2025-03-10 18:35] LABS: CALCIUM, SERUM 9.8 mg/dL (8.5-10.1); CREATININE 1.1 mg/dL (0.6-1.3); SODIUM SERUM 140 mmol/L (136-145); UREA NITROGEN, BLOOD 15 mg/dL (7-18)
[2025-03-10 18:41] LABS: ASPARTATE AMINOTRANSFERASE 17 U/L (15-37)
[2025-03-10 18:42] LABS: TOTAL PROTEIN, SERUM 8.0 g/dL (6.4-8.2)
[2025-03-10 18:44] LABS: APPEARANCE,URINE CLEAR (CLEAR); BLOOD, URINE 2+ Ery/uL (NEGATIVE); LEUKOCYTE ESTERASE ,URINE 1+ (NEGATIVE); NITRITE, URINE NEGATIVE (NEGATIVE); UGLUCOSE NEGATIVE (NEGATIVE)
[2025-03-10 18:45] LABS: LACTIC ACID 2.6 mmol/L (0.4-2.0)
[2025-03-10 18:50] LABS: INR 1.0 (0.91-1.10)
[2025-03-10] MEDS ORDERED: ONDANSETRON HCL/PF 4 MG/2 ML VIAL ONE (19:38)
[2025-03-10] MEDS: ONDANSETRON HCL/PF - ER 4 MG/2 ML VIAL IV ONE (19:44)
[2025-03-10] MEDS ORDERED: CEFTRIAXONE 1GM BAG (ER ONLY) 50 ML IV ONE (19:45)
[2025-03-10] MEDS: CEFTRIAXONE 1GM BAG (ER ONLY) 1 GM/50 ML PIGGYBACK IV ONE (19:46)
[2025-03-10 19:47] LABS: ADD URINE CULTURE YES
[2025-03-10 19:51] LABS: BAND % (MANUAL) 4 % (0.0-5.0); LYMPHOCYTES % (MANUAL) 9 % (16-48); MONOCYTES % (MANUAL) 1 % (0-11.0); NEUTROPHILS % (MANUAL) 86 (42-76); PLATELET ESTIMATE ADEQUATE
[2025-03-10] MEDS: POTASSIUM CHLORIDE 20 MEQ TAB.PRT.SR PO ONE (20:09)
[2025-03-10 21:00] VITALS: BP 120/54; TEMP 99; O2SAT 96
[2025-03-10] MEDS ORDERED: MAG HYDROX/AL HYDROX/SIMETH 30 ML UDC PO PRN (21:00)
[2025-03-10] MEDS ORDERED: ONDANSETRON HCL/PF 4 MG/2 ML VIAL IVP PRN (21:00)
[2025-03-10] MEDS ORDERED: ACETAMINOPHEN ES 500 MG TABLET PO PRN (21:00)
[2025-03-10] MEDS ORDERED: MAGNESIUM HYDROXIDE 30 ML UDC PO PRN (21:00)
[2025-03-10 21:30] VITALS: BP 120/54; TEMP 99; O2SAT 96
[2025-03-10] MEDS ORDERED: DOSING PER PHARMACY-CEFEPIME IVPB XX PRN (22:00)
[2025-03-10] MEDS: GABAPENTIN 100 MG CAPSULE PO SCH (22:02)
[2025-03-11] MEDS ORDERED: CEFEPIME 1 GM VIAL ONE (00:10)
[2025-03-11] MEDS ORDERED: LATANOPROST EYE DROP 0.005% 2.5 ML BOTTLE ONE (00:11)
[2025-03-11] MEDS: CEFEPIME 1 GM in IV D5W 50 ML IV ONE (00:45)
[2025-03-11] MEDS: LATANOPROST EYE DROP 0.005% 2.5 ML BOTTLE RIGHTEYE SCH (00:45)
[2025-03-11] MEDS: ACETAMINOPHEN 325 MG TABLET PO PRN (01:02)
[2025-03-11 07:34] LABS: LACTIC ACID 2.6 mmol/L (0.4-2.0)
[2025-03-11] MEDS: PANTOPRAZOLE 40 MG TABLET.DR PO SCH (07:45)
[2025-03-11 07:51] VITALS: BP 96/54; TEMP 99.3; O2SAT 97
[2025-03-11 07:58] LABS: ASPARTATE AMINOTRANSFERASE 12.0 U/L (15-37); CALCIUM, SERUM 9.1 mg/dL (8.5-10.1); CREATININE 1.0 mg/dL (0.6-1.3); PHOSPHORUS 3.4 mg/dL (2.5-4.9); SODIUM SERUM 140.0 mmol/L (136-145); TOTAL PROTEIN, SERUM 7.0 g/dL (6.4-8.2); UREA NITROGEN, BLOOD 17.0 mg/dL (7-18)
[2025-03-11] MEDS ORDERED: CEFTRIAXONE 1 G in IV D5W 50 ML IV SCH (08:00)
[2025-03-11 08:01] LABS: PLATELET COUNT (AUTO) 233 K/uL (150-450); RED BLOOD CELL COUNT(AUTO) 3.73 MIL/uL (4.0-5.2); RED CELL DISTRIBUTION WIDTH 15.9 % (11.5-15.0); WHITE BLOOD COUNT (AUTO) 21.2 K/uL (4.3-11.0)
[2025-03-11] MEDS: AMLODIPINE BESYLATE 5 MG TABLET PO SCH (08:03)
[2025-03-11] MEDS: FUROSEMIDE 20 MG TABLET PO SCH (08:09)
[2025-03-11] MEDS: ALLOPURINOL 100 MG TABLET PO SCH (08:09)
[2025-03-11] MEDS: CHOLECALCIFEROL 1,000 UNIT TABLET (VIT D3) PO SCH (08:09)
[2025-03-11] MEDS: MULTIVITAMINS,THERAGRAN 1 UDTAB TABLET PO SCH (08:09)
[2025-03-11] MEDS: BRIMONIDINE TARTRATE OPHT SOLN 5 ML BOTTLE RIGHTEYE SCH (08:30)
[2025-03-11] MEDS: TIMOLOL 0.5% SOLN OPHTH 5 ML BOTTLE RIGHTEYE SCH (08:30)
[2025-03-11 08:45] VITALS: BP 117/74; TEMP 99.3; O2SAT 98
[2025-03-11] MEDS ORDERED: FISH OIL PO SCH (09:00)
[2025-03-11] MEDS ORDERED: Z GUARD REMEDY 4 OZ OINT TP PRN (14:30)
[2025-03-11 16:09] VITALS: BP 90/48; TEMP 97.7; O2SAT 99
[2025-03-11] MEDS: CEFEPIME 2 GM in IV D5W 100 ML IV SCH (23:22)
[2025-03-12 05:00] VITALS: BP 94/51; TEMP 98.4; O2SAT 99
[2025-03-12 08:00] VITALS: BP 101/58; TEMP 98.2; O2SAT 98
[2025-03-12] MEDS ORDERED: AZITHROMYCIN 500 MG in IV D5W 250 ML IV ONE (08:00)
[2025-03-12 08:42] VITALS: BP 101/58; TEMP 98.2; O2SAT 99
[2025-03-12] MEDS: AZITHROMYCIN 500 MG in IV D5W 250 ML IV SCH (09:15)
[2025-03-12 09:40] LABS: PLATELET COUNT (AUTO) 196 K/uL (150-450); RED BLOOD CELL COUNT(AUTO) 3.44 MIL/uL (4.0-5.2); RED CELL DISTRIBUTION WIDTH 16.0 % (11.5-15.0); WHITE BLOOD COUNT (AUTO) 14.9 K/uL (4.3-11.0)
[2025-03-12 16:00] VITALS: BP 102/60; TEMP 98.1; O2SAT 100
[2025-03-12 20:00] VITALS: BP 99/47; TEMP 98.1; O2SAT 99
[2025-03-13] VITALS (7 sets, daily range): BP systolic 89–106; BP diastolic 38–73; TEMP 98.1–98.6; O2SAT 95–99
[2025-03-13] MEDS: CLOTRIMAZOLE 1% 15 GM TUBE TP SCH (16:31)
[2025-03-14 00:05] VITALS: O2SAT 98
[2025-03-14 04:48] VITALS: O2SAT 99
[2025-03-14 06:51] VITALS: O2SAT 95
[2025-03-14] MEDS ORDERED: AZIT500T4 PO (11:33)
[2025-03-14] MEDS ORDERED: AMOX-430 PO (11:33)
== END 2025-03-14 16:40 | disposition home health service (06) | DRG 193 ==
LOC: ER 17:30 → MED 20:22
PROVIDERS: ADMIT Nurse Practitioner Family; ATTEND Internal Medicine
DX: J15.9 Unspecified bacterial pneumonia (principal); I50.33 Acute on chronic diastolic (congestive) heart failure; J96.21 Acute and chronic respiratory failure with hypoxia; N39.0 Urinary tract infection, site not specified; N17.9 Acute kidney failure, unspecified; E87.20 Acidosis, unspecified; I13.0 Hypertensive heart and chronic kidney disease with heart failure and stage 1 through stage 4 chronic kidney disease, or unspecified chronic kidney disease; K21.9 Gastro-esophageal reflux disease without esophagitis; E87.6 Hypokalemia; E66.9 Obesity, unspecified; Z86.73 Personal history of transient ischemic attack (TIA), and cerebral infarction without residual deficits; Z82.49 Family history of ischemic heart disease and other diseases of the circulatory system; Z87.442 Personal history of urinary calculi; Z87.891 Personal history of nicotine dependence; Z88.2 Allergy status to sulfonamides; Z88.1 Allergy status to other antibiotic agents; Z90.49 Acquired absence of other specified parts of digestive tract; Z99.81 Dependence on supplemental oxygen; Z79.899 Other long term (current) drug therapy; Z87.2 Personal history of diseases of the skin and subcutaneous tissue; Z88.5 Allergy status to narcotic agent; I25.10 Atherosclerotic heart disease of native coronary artery without angina pectoris; N18.9 Chronic kidney disease, unspecified; H54.62 Unqualified visual loss, left eye, normal vision right eye; E78.5 Hyperlipidemia, unspecified; H40.9 Unspecified glaucoma; D63.8 Anemia in other chronic diseases classified elsewhere; Z68.31 Body mass index [BMI] 31.0-31.9, adult; B96.89 Other specified bacterial agents as the cause of diseases classified elsewhere; R31.9 Hematuria, unspecified
CPT/HCPCS: 36415; 71045-TC; 71250-TC; 80048-TC; 80076-TC; 81001; 83605-TC; 83735-TC; 84100-TC; 84443-TC; 85025-TC; 85027-TC; 85730-TC; 87040-TC; 87086-TC; 97110-TC; 97116-TC; 97530-TC; A4223; G0378; J0456; J0692; J0696; J2405; J7050; J7060

== ENCOUNTER 2025-04-09 13:23 | Emergency (ER) | payer MEDICARE, OTHER ==
[~2025-04-09] VITALS: Ht 162.6 cm; Wt 74.8 kg
[~2025-04-09 13:23] MED LIST changes: +AMOX-430 PO; -APIX5TAB PO; -AZIT250T13 PO; +AZIT500T4 PO
[2025-04-09] MEDS ORDERED: ONDANSETRON HCL/PF 4 MG/2 ML VIAL ONE (13:48)
[2025-04-09] MEDS: IV NS 0.9% 500 ML BAG IV ONE (13:59)
[2025-04-09] MEDS: ONDANSETRON HCL/PF 4 MG/2 ML VIAL IVP ONE (14:00)
[2025-04-09 14:39] LABS: PLATELET COUNT (AUTO) 196 K/uL (150-450); RED BLOOD CELL COUNT(AUTO) 3.93 MIL/uL (4.0-5.2); RED CELL DISTRIBUTION WIDTH 16.4 % (11.5-15.0); WHITE BLOOD COUNT (AUTO) 10.1 K/uL (4.3-11.0)
[2025-04-09 14:54] LABS: ASPARTATE AMINOTRANSFERASE 15 U/L (15-37); CALCIUM, SERUM 9.1 mg/dL (8.5-10.1); CREATININE 1.1 mg/dL (0.6-1.3); SODIUM SERUM 140 mmol/L (136-145); TOTAL PROTEIN, SERUM 6.8 g/dL (6.4-8.2); UREA NITROGEN, BLOOD 13 mg/dL (7-18)
[2025-04-09] MEDS ORDERED: POTA15TA11 PO (16:33)
[2025-04-09] MEDS ORDERED: MECL-159 PO (16:33)
[2025-04-09] MEDS ORDERED: POTASSIUM CHLORIDE 20 MEQ TAB.PRT.SR PO ONE (16:38)
[2025-04-09] MEDS: POTASSIUM CHLORIDE 20 MEQ TAB.PRT.SR PO ONE (16:42)
[2025-04-09 18:25] VITALS: BP 120/70; TEMP 98.1; O2SAT 98
== END 2025-04-09 18:10 | disposition home or self-care (01) ==
LOC: ER 13:29
DX: R42 Dizziness and giddiness (principal); E87.6 Hypokalemia; I11.0 Hypertensive heart disease with heart failure; I50.9 Heart failure, unspecified; K21.9 Gastro-esophageal reflux disease without esophagitis; H54.62 Unqualified visual loss, left eye, normal vision right eye; E78.5 Hyperlipidemia, unspecified; E66.9 Obesity, unspecified; D63.8 Anemia in other chronic diseases classified elsewhere; Z79.621 Long term (current) use of calcineurin inhibitor; Z79.899 Other long term (current) drug therapy; Z86.73 Personal history of transient ischemic attack (TIA), and cerebral infarction without residual deficits; Z87.442 Personal history of urinary calculi; Z87.891 Personal history of nicotine dependence; Z88.1 Allergy status to other antibiotic agents; Z88.2 Allergy status to sulfonamides; Z88.5 Allergy status to narcotic agent; Z88.7 Allergy status to serum and vaccine; Z90.49 Acquired absence of other specified parts of digestive tract; Z99.81 Dependence on supplemental oxygen; Z60.2 Problems related to living alone
CPT/HCPCS: 99285; 96374; 70450; 71045; 93005; 85025; 80048; 83690; 80076; 36415; 84484 ×2; J2405; J7040